=== PATIENT | female | born 1950 | race Caucasian/White ===

== ENCOUNTER → 2017-05-07 | Outpatient (CLI) | payer MEDICARE ==
[~2017-05-07] MED LIST: BUSPAR 10MG10 MG PO; LISINOPRIL5 MG PO; NORCO 5-325 TA1 EACH PO; TOPROL XL 50 MG50 MG PO; TYLENOL 120 MG120 MG PO; TYLENOL 325MG325 MG PO; ZOLOFT100 MG PO
== END ==
LOC: EXRD 14:48
DX: Z13.820 Encounter for screening for osteoporosis (principal); M85.88 Other specified disorders of bone density and structure, other site; Z78.0 Asymptomatic menopausal state
CPT/HCPCS: 77080

== ENCOUNTER 2020-12-14 18:03 | Observation (INO) | payer MEDICARE ==
[~2020-12-14] VITALS: Ht 160 cm; Wt 88.5 kg
[~2020-12-14 18:03] MED LIST changes: +LOPRESSOR 50 MG50 MG PO; -TOPROL XL 50 MG50 MG PO
[2020-12-14 19:14] LABS: HEMOGLOBIN 12.9 gm/dl (12.3-15.3); RED BLOOD COUNT 4.38 M/UL (4.00-5.10); WHITE BLOOD COUNT 7.1 K/UL (4.5-11.0)
[2020-12-14 19:38] LABS: BUN/CREATININE RATIO 20 (0-10)
[2020-12-14] MEDS ORDERED: ALL DAY ALLERGY10 M2 PO (22:32)
[2020-12-14] MEDS ORDERED: COZAAR 50MG TAB50 MG PO (22:32)
[2020-12-15] MEDS ORDERED: ASPIRIN81 MG PO (14:34)
[2020-12-15] MEDS ORDERED: COZAAR100 MG PO (16:55)
== END 2020-12-15 18:01 | disposition home or self-care (01) ==
LOC: ER1 18:03 → MED SURG 4 22:09 → CDU 22:09 → MED SURG 4 12-15 00:45
PROVIDERS: Physician Assistant; ADMIT Internal Medicine
DX: R07.89 Other chest pain (principal); I10 Essential (primary) hypertension; R00.1 Bradycardia, unspecified; E78.5 Hyperlipidemia, unspecified; Z82.49 Family history of ischemic heart disease and other diseases of the circulatory system; Z79.899 Other long term (current) drug therapy; Z90.49 Acquired absence of other specified parts of digestive tract; Z88.6 Allergy status to analgesic agent; Z20.822 Contact with and (suspected) exposure to COVID-19; Z98.890 Other specified postprocedural states
CPT/HCPCS: 71045; 80053; 82550; 82553; 83690; 83874; 84484; 85025; 93005; 99285; G0378; U0002